=== PATIENT | male | born 1985 ===

== ENCOUNTER 2017-12-31 09:25 | Emergency (ER) | payer MEDICAID ==
[2017-12-31 09:33] VITALS: BMI 23.7
--- NOTE | 2017-12-31 10:20 | C.PDOC ---
History Of Present Illness Patient is a 32 year old male who denies PMHx who presents with complaint of right knee pain and swelling that began yesterday. Patient states that he was playing football yesterday around 12-1pm and moved laterally, planted right foot , and immediately felt pain deep inside right knee. Patient states he was able to bear weight on right leg immediately after pain and kept playing football. Patient states in second football game yesterday he jumped up into air and upon straightening right leg felt more pain, at which time he stopped playing football. Patient did not take any pain medication and did not ice knee. Patient reports past injury to knee many years ago where it buckled but he never sought medical attention. He reports swelling to right knee. Time Seen by Provider: 12/31/17 09:34 Chief Complaint (Nursing): Lower Extremity Problem/Injury History Per: Patient History/Exam Limitations: no limitations Onset/Duration Of Symptoms: Days Current Symptoms Are (Timing): Still Present Severity: Moderate Pain Scale Rating Of: 5 - Knee Description Of Injury: Other (moved laterally during football game, denies twisting) Alleviating Factor(s): Other (patient has not tried any therapies) Past Medical History Vital Signs: Last Vital Signs Temp 98.0 F 12/31/17 11:27 Pulse 60 12/31/17 11:27 Resp 16 12/31/17 11:27 BP 108/68 12/31/17 11:27 Pulse Ox 99 12/31/17 11:27 - Medical History PMH: No Chronic Diseases Surgical History: No Surg Hx Family History: States: Unknown Family Hx - Social History Hx Alcohol Use: Yes Hx Substance Use: Yes (Marijuana) Review Of Systems Constitutional: Negative for: Fever, Chills, Weakness Eyes: Negative for: Pain, Vision Change ENT: Negative for: Ear Pain, Ear Discharge Cardiovascular: Negative for: Chest Pain, Palpitations Respiratory: Negative for: Cough, Shortness of Breath Gastrointestinal: Negative for: Nausea, Vomiting, Abdominal Pain, Diarrhea Genitourinary: Negative for: Dysuria Musculoskeletal: Positive for: Leg Pain (right knee). Negative for: Neck Pain, Shoulder Pain Neurological: Negative for: Weakness, Numbness Physical Exam - Physical Exam Appears: Non-toxic, No Acute Distress Skin: Normal Color, Warm, Dry Head: Atraumatic, Normacephalic Eye(s): bilateral: EOMI Nose: Normal Oral Mucosa: Moist Tongue: Normal Appearing Lips: Normal Appearing Chest: Symmetrical Cardiovascular: Rhythm Regular Respiratory: Normal Breath Sounds Gastrointestinal/Abdominal: Normal Exam, Bowel Sounds, Soft, No Tenderness Extremity: Other (right knee mild diffuse swelling compared to left, no well- defined effusion. patellar grind negative. anterior drawer, varus and valgus testing could not be completely performed due to pain, no gross ligamentous laxity appreciated) Extremity: Right: Painful To Bear Weight, Bilateral: No Pedal Edema, Normal Color And Temperature ED Course And Treatment O2 Sat by Pulse Oximetry: 98 Progress Note: Pain improved after ibuprofen. Patient given information for orthopedics follow up. [place] bandage applied to right knee. Disposition - Disposition Referrals: [facility] [Outside] [facility] [place] [Outside] Constantine Medina MD [Staff Provider] - Disposition: HOME/ ROUTINE Disposition Time: 11:00 Condition: GOOD Additional Instructions: FOLLOW UP WITH ORTHOPEDICS WITHIN 1 WEEK NO GYM/SPORTS UNTIL CLEARED BY ORTHO USE MEDICATION NEEDED ELEVATE LEG APPLY ICE SEVERAL TIMES DAILY RETURN TO ER IF SYMPTOMS WORSEN Prescriptions: Ibuprofen [Motrin Tab] 600 mg PO Q6 PRN #30 tab PRN Reason: fever/pain Instructions: Knee Sprain (DC) Forms: [employer] (Nepalese) Print Language: YAKUT - Clinical Impression Clinical Impression: Knee sprain - 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 / has examined the patient and agrees with the treatment plan.
[2017-12-31 11:28] VITALS: BP 108/68; PULSE 60; RESP 16; TEMP 98
[2017-12-31 13:09] VITALS: O2SAT 98
--- NOTE | 2017-12-31 13:34 | RAD ---
PROCEDURE: Right Knee Radiographs. HISTORY: RIGHT KNEE INJURY R/O FX COMPARISON: None. FINDINGS: BONES: Normal. No fracture. JOINTS: Normal. No osteoarthritis. JOINT EFFUSION: Medium size suprapatellar joint effusion. OTHER FINDINGS: None. IMPRESSION: Medium-sized suprapatellar joint effusion. No evidence of acute displaced fracture nor dislocation.
== END 2017-12-31 11:29 | disposition home or self-care (01) ==
LOC: C.ER 09:25
DX: S83.91XA Sprain of unspecified site of right knee, initial encounter (principal); X58.XXXA Exposure to other specified factors, initial encounter; Y93.61 Activity, american tackle football